=== PATIENT | male | born 1965 | race Two or more races ===

== ENCOUNTER 2021-10-11 12:00 | Inpatient (IN) | payer OTHER ==
[~2021-10-11] VITALS: Ht 167.6 cm; Wt 98.0 kg
[~2021-10-11 12:00] MED LIST: COZAAR100 MG PO; DILTIAZEM HCL120 MG
== END 2021-10-17 17:57 | disposition home or self-care (01) | DRG 333 ==
LOC: ADM 12:00 → EDSTATUS 12:00 → SURH 10-14 07:53 → O/R 10-14 07:53 → SURG 10-14 10:30 → SURH 10-14 16:07
PROVIDERS: ADMIT Surgery; ATTEND Surgery
PROC: 0DTP8ZZ Resection of Rectum, Via Natural or Artificial Opening Endoscopic (ICD-10-PCS; principal; 2021-10-14 10:30)
DX: D12.8 Benign neoplasm of rectum (principal); K92.1 Melena; D37.5 Neoplasm of uncertain behavior of rectum; K58.0 Irritable bowel syndrome with diarrhea; Z20.822 Contact with and (suspected) exposure to COVID-19; I10 Essential (primary) hypertension